=== PATIENT | male | born 1960 | race Caucasian/White ===

== ENCOUNTER 2022-09-26 07:00 | Inpatient (IN) | payer BC ==
[2022-09-26 08:02] LABS: Hemoglobin 13.9 g/dL (13.5-17.5); Mean Corpuscular HGB CONC 34.6 g/dL (32.0-36.0); Mean Corpuscular Hemoglobin 29.4 pg (27.0-33.0); Mean Platelet Volume 12.1 fl (7.4-10.4); Platelet Count 171 10x3/uL (150-450); RBC Distribution Width 12.4 % (11.5-14.5); Red Blood Cell (RBC) Count 4.73 10x6/uL (4.32-5.72); White Blood Cell (WBC) Count 5.5 10x3/uL (3.5-10.5)
[2022-09-26 08:26] LABS: Anion Gap 13 mmol/L (10-20); BUN (Urea Nitrogen) 15 mg/dL (8.4-25.7); Calc. Creatinine Clearance 0 mL/min (70-130); Calcium 9.1 mg/dL (7.8-10.44); Carbon Dioxide 24 mmol/L (23-31); Chloride 106 mmol/L (98-107); Estimated GFR 93; Glucose 115 mg/dL (80-115); Potassium 4.1 mmol/L (3.5-5.1); Sodium 139 mmol/L (136-145)
[2022-09-27] MEDS ORDERED: Albumin 5% 500 ML ONE (06:20)
[2022-09-27] MEDS ORDERED: Dexmedetomidine 200 MCG/2 ML VIAL ONE (06:44)
[2022-09-27] MEDS ORDERED: Midazolam HCl 5 mg/5 ml Vial ONE (06:44)
[2022-09-27] MEDS ORDERED: Fentanyl 250 MCG/5 ML VIAL ONE (06:44)
[2022-09-27] MEDS ORDERED: Heparin 10,000 UNITS/1 ML VIAL 30,000 UNITS in Sodium Chloride 0.9% 1,000 ML FS SCH (07:00)
[2022-09-27 07:07] LABS: SARS-CoV-2 NAA Rapid Test Not Detected (NotDetected)
[2022-09-27] MEDS ORDERED: CEFAZOLIN 2 GM VIAL ONE (07:17)
[2022-09-27] MEDS ORDERED: Sodium Chloride 0.9% 100 ML ONE (07:17)
[2022-09-27] MEDS ORDERED: Heparin 30,000 units/30 ml VIAL ONE (07:33)
[2022-09-27] MEDS ORDERED: Ondansetron PF 4 MG/2 ML Vial ONE (07:33)
[2022-09-27] MEDS ORDERED: Vecuronium 10 MG VIAL ONE (07:33)
[2022-09-27] MEDS ORDERED: PROPOFOL 200 MG/20 ML VIAL ONE (07:33)
[2022-09-27] MEDS ORDERED: Vancomycin 1 GM VIAL ONE (07:33)
[2022-09-27] MEDS ORDERED: Sodium Bicarb 50 MEQ/50 ML Abboject 8.4% SYRINGE ONE (07:33)
[2022-09-27] MEDS ORDERED: Aminocaproic Acid 5 GM/20 ML VIAL ONE (07:33)
[2022-09-27] MEDS ORDERED: Papaverine 60 MG/2 ML VIAL ONE (07:33)
[2022-09-27] MEDS ORDERED: Thrombin 5000 UNITS/5 ML VIAL ONE (07:33)
[2022-09-27] MEDS ORDERED: Norepinephrine 4 MG/4 ML VIAL ONE (07:33)
[2022-09-27] MEDS ORDERED: Magnesium 5 GM/10 ML VIAL ONE (07:33)
[2022-09-27] MEDS ORDERED: NEOSTIGMINE 3 MG/3 ML SYR 3 MG/3 ML SYRINGE ONE (07:33)
[2022-09-27] MEDS ORDERED: Protamine Sulfate 250 MG/25 ML VIAL ONE (07:33)
[2022-09-27] MEDS ORDERED: ePHEDrine 50 MG/ML VIAL ONE (07:33)
[2022-09-27] MEDS ORDERED: Heparin 5,000 UNITS/ML VIAL ONE (07:33)
[2022-09-27] MEDS ORDERED: Lidocaine 2% PF 100 mg/5 ml Syringe ONE (07:33)
[2022-09-27] MEDS ORDERED: Nitroglycerin 50 MG/250 ML BOT ONE (07:33)
[2022-09-27] MEDS ORDERED: Mannitol 12.5 GM/50 ML ONE (07:33)
[2022-09-27] MEDS ORDERED: Dexamethasone 20 MG/5 ML VIAL ONE (07:33)
[2022-09-27] MEDS ORDERED: Cardioplegic Soln 1,000 ML BAG ONE (07:33)
[2022-09-27] MEDS ORDERED: Glycopyrrolate 0.2 MG/ML 5 ML SYRINGE ONE (07:33)
[2022-09-27] MEDS ORDERED: Lidocaine 1% PF 5 ML VIAL ONE (07:33)
[2022-09-27] MEDS ORDERED: Calcium Chloride 1 GM/10 ML Abboject SYRINGE ONE (07:33)
[2022-09-27] MEDS ORDERED: Potassium Chloride 60 MEQ/30 ML VIAL ONE (07:33)
[2022-09-27] MEDS ORDERED: Insulin Regular 300 UNITS/3 ML VIAL ONE (08:37)
[2022-09-27] MEDS ORDERED: Morphine 2 MG/ML VIAL SLOW IVP PRN (10:46)
[2022-09-27] MEDS ORDERED: NOREPINEPHRINE 8 MG/250 ML-D5W 250 ML IVPB PRN (10:46)
[2022-09-27] MEDS ORDERED: Acetaminophen 325 MG TAB PO PRN (10:46)
[2022-09-27] MEDS ORDERED: hydrALAZINE 20 MG/ML VIAL SLOW IVP PRN (10:46)
[2022-09-27] MEDS ORDERED: Fentanyl 100 MCG/2 ML VIAL SLOW IVP PRN (10:46)
[2022-09-27] MEDS ORDERED: Guaifenesin DM 100-10/5 ML UDCUP PO PRN (10:46)
[2022-09-27] MEDS ORDERED: Mag-Al 1200 mg/1200 mg/30 ML UDCUP PO PRN (10:46)
[2022-09-27] MEDS ORDERED: HYDROcodone/Acetaminophen 5/325 mg Tablet PO PRN (10:46)
[2022-09-27] MEDS ORDERED: Ondansetron PF 4 MG/2 ML Vial IVP PRN (10:46)
[2022-09-27] MEDS ORDERED: Post-Op Insulin Drip Protocol IVPB ONE (10:46)
[2022-09-27] MEDS ORDERED: Bisacodyl 5 MG TAB PO PRN (10:46)
[2022-09-27] MEDS ORDERED: Bisacodyl 10 MG SUPP PR PRN (10:46)
[2022-09-27] MEDS ORDERED: Potassium Chloride 20 MEQ/100 ML PREMIX BAG IVPB PRN (10:46)
[2022-09-27] MEDS ORDERED: niCARdipine 25 MG in Sodium Chloride 0.9% 250 ML 250 ML IVPB PRN (10:46)
[2022-09-27] MEDS ORDERED: Ipratropium/Albuterol 3 ML NEB NEB PRN (10:46)
[2022-09-27] MEDS ORDERED: Hetastarch 6% 500 ML 500 ML IVPB PRN (10:46)
[2022-09-27] MEDS: Lactated Ringer's 1,000 ML IV SCH (11:14)
[2022-09-27] MEDS ORDERED: Dextrose 5% in Water 1,000 ML IV PRN (11:15)
[2022-09-27] MEDS: Insulin Regular 300 UNITS/3 ML VIAL SC PRN ×3 (11:15→21:37)
[2022-09-27] MEDS ORDERED: HUMULIN R 100 UNITS in Sodium Chloride 0.9% 100 ML IVPB SCH (11:15)
[2022-09-27] MEDS ORDERED: Dextrose 50% Abboject 50 ML SYRINGE SLOW IVP PRN (11:15)
[2022-09-27] MEDS: Ketorolac Tromethamine 30 MG/ML VIAL IVP SCH ×2 (11:21→17:12)
[2022-09-27 11:47] LABS: INR-International Normal Ratio 1.4; PTT 27.1 sec (22.9-36.1); Prothrombin Time 17.9 sec (12.0-14.7)
[2022-09-27 11:55] LABS: #Eosinphils 0.1 thou/uL (0.0-0.7); #Lymphocytes 1.9 thou/uL (1.20-3.40); #Monocytes 0.8 thou/uL (0.11-0.59); %Basophils 0.1 % (0.0-1.0); %Eosinophils 0.6 % (0.0-10.0); %Lymphocytes 13.1 % (21.0-51.0); %Monocytes 5.6 % (0.0-10.0); %Neutrophils 80.7 % (42.0-75.0); Hemoglobin 12.3 g/dL (14.0-18.0); Mean Corpuscular HGB CONC 33.2 g/dL (32.0-36.0); Mean Corpuscular Hemoglobin 30.1 pg (27.0-31.0); Mean Corpuscular Volume 90.7 fl (78.0-98.0); Mean Platelet Volume 10.2 fL (7.4-10.4); Platelet Count 116 10x3/uL (130-400); Platelet Morphology Comment Appears Decreased; RBC Distribution Width 11.6 % (11.5-14.5); RBC Morphology Normal; Red Blood Cell (RBC) Count 4.08 mill/uL (4.70-6.10); White Blood Cell (WBC) Count 14.8 10x3/uL (4.8-10.8)
[2022-09-27 11:57] LABS: Anion Gap 9 mmol/L (10-20); BUN (Urea Nitrogen) 12 mg/dL (8.4-25.7); Calc. Creatinine Clearance 0 mL/min (70-130); Carbon Dioxide 23 mmol/L (23-31); Chloride 112 mmol/L (98-107); Potassium 4.4 mmol/L (3.5-5.1); Sodium 140 mmol/L (136-145)
[2022-09-27 11:58] LABS: Estimated GFR 100; Glucose 163 mg/dL (80-115)
[2022-09-27] MEDS: Fentanyl 100 MCG/2 ML VIAL SLOW IVP PRN ×5 (12:03→20:21)
[2022-09-27] MEDS: HYDROcodone/Acetaminophen 5/325 mg Tablet PO PRN ×3 (13:15→21:04)
[2022-09-27] MEDS: CEFAZOLIN 2 GM in Sodium Chloride 0.9% 100 ML IVPB SCH ×2 (13:23→21:04)
[2022-09-27 14:02] VITALS: BMI 28.4
[2022-09-27 16:41] LABS: Hemoglobin 12.3 g/dL (14.0-18.0)
[2022-09-27 16:55] LABS: Potassium 4.3 mmol/L (3.5-5.1)
[2022-09-27] MEDS: Atorvastatin Calcium 20 MG TAB PO SCH (20:22)
[2022-09-27] MEDS: Famotidine/PF 20 mg/2ml Vial SLOW IVP SCH (20:22)
[2022-09-28] MEDS: Ketorolac Tromethamine 30 MG/ML VIAL IVP SCH ×4 (00:01→17:56)
[2022-09-28] MEDS: Fentanyl 100 MCG/2 ML VIAL SLOW IVP PRN ×4 (00:02→15:40)
[2022-09-28] MEDS: Insulin Regular 300 UNITS/3 ML VIAL SC PRN ×3 (00:09→09:48)
[2022-09-28] MEDS: HYDROcodone/Acetaminophen 5/325 mg Tablet PO PRN ×3 (01:10→18:36)
[2022-09-28 04:15] LABS: #Lymphocytes 1.4 thou/uL (1.20-3.40); #Monocytes 1.4 thou/uL (0.11-0.59); #Neutrophils 9.5 thou/uL (1.40-6.50); %Basophils 0.2 % (0.0-1.0); %Lymphocytes 11.1 % (21.0-51.0); %Monocytes 11.2 % (0.0-10.0); %Neutrophils 77.6 % (42.0-75.0); Hemoglobin 10.5 g/dL (14.0-18.0); Mean Corpuscular HGB CONC 33.8 g/dL (32.0-36.0); Mean Corpuscular Hemoglobin 30.6 pg (27.0-31.0); Mean Corpuscular Volume 90.6 fl (78.0-98.0); Mean Platelet Volume 10.2 fL (7.4-10.4); Platelet Count 105 10x3/uL (130-400); RBC Distribution Width 11.7 % (11.5-14.5); Red Blood Cell (RBC) Count 3.43 mill/uL (4.70-6.10); White Blood Cell (WBC) Count 12.2 10x3/uL (4.8-10.8)
[2022-09-28 04:31] LABS: Anion Gap 13 mmol/L (10-20); BUN (Urea Nitrogen) 11 mg/dL (8.4-25.7); Calc. Creatinine Clearance 106 mL/min (70-130); Calcium 8.6 mg/dL (7.8-10.44); Carbon Dioxide 24 mmol/L (23-31); Chloride 107 mmol/L (98-107); Estimated GFR 93; Glucose 153 mg/dL (80-115); Potassium 4.3 mmol/L (3.5-5.1); Sodium 140 mmol/L (136-145)
[2022-09-28] MEDS: CEFAZOLIN 2 GM in Sodium Chloride 0.9% 100 ML IVPB SCH (06:31)
[2022-09-28] MEDS: Lactated Ringer's 1,000 ML IV SCH (07:53)
[2022-09-28] MEDS: Famotidine/PF 20 mg/2ml Vial SLOW IVP SCH (08:58)
[2022-09-28] MEDS: Magnesium 2 GM/50 ML(in water) 2 GM in Premix Bag 1 BAG IVPB SCH (08:59)
[2022-09-28] MEDS: Aspirin 325 MG TAB PO SCH (08:59)
[2022-09-28] MEDS ORDERED: Nitroglycerin 0.4 MG TAB (25 Tab Bottle) SL PRN (10:09)
[2022-09-28] MEDS ORDERED: Insulin Glargine 30 UNITS/0.3 ML VIAL SC PRN (11:02)
[2022-09-28] MEDS ORDERED: Melatonin 3 MG TAB PO PRN (18:48)
[2022-09-28] MEDS: Atorvastatin Calcium 20 MG TAB PO SCH (20:24)
[2022-09-29] MEDS: HYDROcodone/Acetaminophen 5/325 mg Tablet PO PRN ×2 (04:01→23:26)
[2022-09-29] MEDS: Ketorolac Tromethamine 30 MG/ML VIAL IVP SCH ×4 (04:04→16:48)
[2022-09-29] MEDS ORDERED: Metoprolol Tartrate 25 MG TAB PO SCH (09:00)
[2022-09-29] MEDS: Magnesium 2 GM/50 ML(in water) 2 GM in Premix Bag 1 BAG IVPB SCH (09:43)
[2022-09-29] MEDS: Polyethylene Glycol 3350 17 GM Packet PO SCH (09:43)
[2022-09-29] MEDS: Aspirin 325 MG TAB PO SCH (09:44)
[2022-09-29] MEDS: Furosemide 40 MG TAB PO SCH (09:46)
[2022-09-29] MEDS: Atorvastatin Calcium 20 MG TAB PO SCH (20:45)
[2022-09-29] MEDS ORDERED: Lisinopril 10 MG TAB PO SCH (21:00)
[2022-09-29] MEDS ORDERED: Lisinopril 5 MG TAB PO SCH (21:00)
[2022-09-30] MEDS: Ketorolac Tromethamine 30 MG/ML VIAL IVP SCH ×2 (05:29)
[2022-09-30] MEDS: Polyethylene Glycol 3350 17 GM Packet PO SCH (08:36)
[2022-09-30] MEDS: Furosemide 40 MG TAB PO SCH (08:36)
[2022-09-30] MEDS: Aspirin 325 MG TAB PO SCH (08:41)
[2022-09-30] MEDS ORDERED: Clopidogrel Bisulfate 75 MG TAB PO SCH (09:00)
[2022-09-30 11:12] VITALS: BP 130/78; TEMP 98
[2022-10-04 15:14] LABS: Actual Bicarbonate (HCO3a) 23.3 mEq/L (22-28); Analyzer IN Cardio OR; Base Excess (BEa) -2.6 mEq/L (-2.0 to +3.0); CO2 Tension 44.2 mmHg (35.0-45.0); Calcium, Ionized (arterial) 1.11 mmol/L (1.12-1.30); Carboxyhemoglobin (COHb) 0.7 gm% (0.0-3.0); Hemoglobin (Hb) 13.7 g/dL (14.0-18.0); O2 Tension (PaO2), arterial 280.1 mmHg (> 80.0); Potassium - ABG Lab 3.78 mmol/L (3.70-5.30); pH, Arterial 7.34 (7.35-7.45)
[2022-10-04 15:14] LABS: Actual Bicarbonate (HCO3a) 19.1 mEq/L (22-28); Analyzer IN Cardio OR; Base Excess (BEa) -6.1 mEq/L (-2.0 to +3.0); CO2 Tension 36.9 mmHg (35.0-45.0); Carboxyhemoglobin (COHb) 0.5 gm% (0.0-3.0); Hemoglobin (Hb) 12.7 g/dL (14.0-18.0); O2 Tension (PaO2), arterial 309.3 mmHg (> 80.0); Potassium - ABG Lab 4.41 mmol/L (3.70-5.30); pH, Arterial 7.33 (7.35-7.45)
[2022-10-04 15:15] LABS: Actual Bicarbonate (HCO3a) 24.2 mEq/L (22-28); Analyzer IN Cardio OR; Base Excess (BEa) -1.9 mEq/L (-2.0 to +3.0); CO2 Tension 46.9 mmHg (35.0-45.0); Calcium, Ionized (arterial) 0.98 mmol/L (1.12-1.30); Hemoglobin (Hb) 10.1 g/dL (14.0-18.0); O2 Tension (PaO2), arterial 325.2 mmHg (> 80.0); Potassium - ABG Lab 5.26 mmol/L (3.70-5.30); pH, Arterial 7.33 (7.35-7.45)
[2022-10-04 15:15] LABS: Actual Bicarbonate (HCO3a) 24.7 mEq/L (22-28); Analyzer IN Cardio OR; Base Excess (BEa) -0.8 mEq/L (-2.0 to +3.0); CO2 Tension 44.2 mmHg (35.0-45.0); Carboxyhemoglobin (COHb) 0.3 gm% (0.0-3.0); Hemoglobin (Hb) 9.9 g/dL (14.0-18.0); O2 Tension (PaO2), arterial 324.5 mmHg (> 80.0); Potassium - ABG Lab 4.96 mmol/L (3.70-5.30); pH, Arterial 7.37 (7.35-7.45)
[2022-10-04 15:16] LABS: Actual Bicarbonate (HCO3a) 22.7 mEq/L (22-28); Analyzer IN Cardio OR; Base Excess (BEa) -2.7 mEq/L (-2.0 to +3.0); CO2 Tension 41.7 mmHg (35.0-45.0); Calcium, Ionized (arterial) 1.23 mmol/L (1.12-1.30); Carboxyhemoglobin (COHb) 0.3 gm% (0.0-3.0); Hemoglobin (Hb) 10.2 g/dL (14.0-18.0); O2 Tension (PaO2), arterial 142.2 mmHg (> 80.0); Potassium - ABG Lab 4.49 mmol/L (3.70-5.30); pH, Arterial 7.35 (7.35-7.45)
[2022-10-04 15:16] LABS: Puncture Site Arterial Line
[2022-10-04 15:17] LABS: Puncture Site Arterial Line
[2022-10-04 15:17] LABS: Puncture Site Arterial Line
[2022-10-04 15:18] LABS: Puncture Site Arterial Line
[2022-10-04 15:18] LABS: Puncture Site Arterial Line
== END 2022-09-30 11:15 | disposition home or self-care (01) | DRG 236 ==
LOC: SURG A 09-27 05:57 → CCU 09-27 10:39 → 2NO 09-28 12:34
PROVIDERS: ADMIT Thoracic Surgery (Cardiothoracic Vascular Surgery); ATTEND Thoracic Surgery (Cardiothoracic Vascular Surgery)
PROC: 02100Z9 Bypass Coronary Artery, One Artery from Left Internal Mammary, Open Approach (ICD-10-PCS; principal; 2022-09-27)
PROC: 021109W Bypass Coronary Artery, Two Arteries from Aorta with Autologous Venous Tissue, Open Approach (ICD-10-PCS; 2022-09-27)
PROC: 06BQ4ZZ Excision of Left Saphenous Vein, Percutaneous Endoscopic Approach (ICD-10-PCS; 2022-09-27)
PROC: 5A1221Z Performance of Cardiac Output, Continuous (ICD-10-PCS; 2022-09-27)
PROC: 02L70CK Occlusion of Left Atrial Appendage with Extraluminal Device, Open Approach (ICD-10-PCS; 2022-09-27)
PROC: 3E033XZ Introduction of Vasopressor into Peripheral Vein, Percutaneous Approach (ICD-10-PCS; 2022-09-27)
PROC: 02H633Z Insertion of Infusion Device into Right Atrium, Percutaneous Approach (ICD-10-PCS; 2022-09-27)
DX: I25.10 Atherosclerotic heart disease of native coronary artery without angina pectoris (principal); I10 Essential (primary) hypertension; E78.2 Mixed hyperlipidemia; Z20.822 Contact with and (suspected) exposure to COVID-19; Z98.890 Other specified postprocedural states; Z82.49 Family history of ischemic heart disease and other diseases of the circulatory system; Z83.3 Family history of diabetes mellitus; Z79.82 Long term (current) use of aspirin; Z79.899 Other long term (current) drug therapy
CPT/HCPCS: 36415; 36416; 36430; 71045; 80048; 85025; 85027; 85610; 85730; 86850; 86900; 86901; 93005; 93010; 93798; C1751; C1776; J1100; J1644; J1650; J1815; J1885; J2001; J2150; J2250; J2405; J2440; J2704; J2720; J3010; J3370; J3475; J3480; J3490; J7120; P9045; S0017; S0028; U0002

== ENCOUNTER 2022-09-26 07:26 | Outpatient (CLI) | payer BC ==
[2022-09-26 09:31] VITALS: BMI 27.9
== END 2022-09-26 07:27 | disposition home or self-care (01) ==
LOC: LABBT 07:26
PROVIDERS: ATTEND Thoracic Surgery (Cardiothoracic Vascular Surgery)
DX: Z01.818 Encounter for other preprocedural examination (principal); I25.10 Atherosclerotic heart disease of native coronary artery without angina pectoris
CPT/HCPCS: 80048; 85027; 86850; 86900; 86901; 93005; 93010

== ENCOUNTER 2023-03-20 12:03 | Outpatient (CLI) | payer BC | END 2023-03-20 12:04 | disposition home or self-care (01) | LOC: BICULT 12:03 | PROVIDERS: ATTEND Internal Medicine | DX: R10.12 Left upper quadrant pain (principal); K80.20 Calculus of gallbladder without cholecystitis without obstruction | CPT/HCPCS: 76700 ==

== ENCOUNTER 2024-06-17 09:35 | Outpatient (CLI) | payer BC | END 2024-06-17 09:36 | disposition home or self-care (01) | LOC: SCSRAD 09:35 | PROVIDERS: ATTEND Nurse Practitioner Family | DX: S99.912A Unspecified injury of left ankle, initial encounter (principal); M70.872 Other soft tissue disorders related to use, overuse and pressure, left ankle and foot ==